=== PATIENT | female | born 1965 | race Caucasian/White ===

== ENCOUNTER 2024-05-12 05:33 | Day surgery (SDC) | payer OTHER ==
[~2024-05-12] VITALS: Ht 167.6 cm; Wt 98.6 kg
[~2024-05-12 05:33] MED LIST: LEVSOD125 PO; SERT50 PO
[2024-05-12] MEDS ORDERED: propofoL 50 ML IV ONE (07:30)
[2024-05-12] MEDS ORDERED: Lactated Ringer's 1,000 ML IV ONE ×2 (07:31→10:04)
[2024-05-12] MEDS ORDERED: GABA300 (09:30)
[2024-05-12] MEDS ORDERED: MOBIC15 MG (09:31)
[2024-05-12 10:59] VITALS: BP 131/79
== END 2024-05-12 11:02 | disposition home or self-care (01) ==
LOC: ORSCSDS 05:33
PROVIDERS: Surgery
PROC: 0DJD8ZZ Inspection of Lower Intestinal Tract, Via Natural or Artificial Opening Endoscopic (ICD-10-PCS; principal; 2024-05-12 10:45)
DX: Z12.11 Encounter for screening for malignant neoplasm of colon (principal); Z86.0100 Personal history of colon polyps, unspecified; E07.9 Disorder of thyroid, unspecified; Z79.899 Other long term (current) drug therapy
CPT/HCPCS: J2704; J7120